=== PATIENT | male | born 1945 ===

== ENCOUNTER → 2018-09-19 18:55 | Outpatient (REF) | payer MEDICARE, SELFPAY ==
[2018-09-19 19:35] LABS: Hemoglobin A1C% w Est Avg Glu 6.2 % (4.0-6.0)
== END ==
LOC: LAB 18:55
PROVIDERS: Visit Provider Specialist
DX: E11.9 Type 2 diabetes mellitus without complications (principal); I10 Essential (primary) hypertension
CPT/HCPCS: 83036